=== PATIENT | male | born 1970 | race Two or more races ===

== ENCOUNTER 2017-07-20 11:07 | Inpatient (IN) | payer OTHER ==
[2017-07-20 14:32] VITALS: BMI 33.3
--- NOTE | 2017-07-20 16:16 | HP ---
COWS - Scale Resting Pulse: 1= OR 81-100 Sweatin=Flushed/Facial Moisture Restless Observation: 1= Difficult to Sit Still Pupil Size: 0= Normal to Room Light Bone or Joint Aches: 2= Severe Diffuse Aches Runny Nose/ Eye Tearin= Runny Nose/Eyes GI Upset > 30mins: 2= Nausea/Diarrhea Tremor Observation: 2= Slight Tremor Visible Yawning Observation: 1= 1-2x During Session Anxiety or Irritability: 2=Irritable/Anxious Goose Flesh Skin: 0=Smooth Skin COWS Score: 15 CIWA Score - CIWA Score Nausea/Vomitin Muscle Tremors: 4-Moderate,w/Arms Extend Anxiety: 4-Mod. Anxious/Guarded Agitation: 3 Paroxysmal Sweats: 3 Orientation: 3-Disoriented Date>2 days Tacttile Disturbances: 0-None Auditory Disturbances: 0-None Visual Disturbances: 0-None Headache: 0-None Present CIWA-Ar Total Score: 19 Admission ROS BHS - HPI Chief Complaint: Withdrawal sx. Allergies/Adverse Reactions: Allergies Allergy/AdvReac Type Severity Reaction Status Date / Time pollen extracts Allergy Verified 07/20/17 16:10 History of Present Illness: 47 y/o man with a long hx of Heroin,Alcohol & sedative dependence is admitted for detox. pt. reports one previous detox at [facility] in the . Exam Limitations: No Limitations - Ebola screening Have you traveled outside of the country in the last 21 days: No Have you had contact with anyone from an Ebola affected area: No Have you been sick,other than usual withdrawal symptoms: No Do you have a fever: No - Review of Systems Constitutional: Diaphoresis EENT: reports: Nose Congestion Respiratory: reports: No Symptoms reported Cardiac: reports: No Symptoms Reported GI: reports: Nausea, Abdominal cramping : reports: No Symptoms Reported Musculoskeletal: reports: Back Pain, Joint Pain Integumentary: reports: Sweating Neuro: reports: Seizure (3 yrs ago sedative withdrawal sx.), Tremors Patient History - Patient Medical History Hx Anemia: No Hx Asthma: No Hx Chronic Obstructive Pulmonary Disease (COPD): No Hx Cancer: No Hx Cardiac Disorders: No Hx Congestive Heart Failure: No Hx Hypertension: No Hx Hypercholesterolemia: No Hx Pacemaker: No 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) Hx Dementia: No Hx Diabetes: No Hx Gastrointestinal Disorders: Yes (GERD) Hx Liver Disease: No Hx Genitourinary Disorders: No Hx Sexually Transmitted Disorders: No Hx Renal Disease (ESRD): No Hx Thyroid Disease: No Hx Human Immunodeficiency Virus (HIV): No Hx Hepatitis C: No Hx Depression: Yes (Seroquel,elavil & xanax) Hx Suicide Attempt: No Hx Bipolar Disorder: Yes Hx Schizophrenia: No - Patient Surgical History Past Surgical History: No - PPD History Previous Implant?: Yes Documented Results: Negative w/o proof Implanted On Prior [facility] Admission?: No PPD to be Administered?: Yes - Smoking Cessation Smoking history: Current every day smoker Aproximately how many cigarettes per day: 20 Hx Chewing Tobacco Use: No Initiated information on smoking cessation: Yes 'Breaking Loose' booklet given: 07/20/17 - Substance & Tx. History Hx Alcohol Use: Yes Hx Substance Use: Yes Substance Use Type: Alcohol, Heroin, Tranquilizers Hx Substance Use Treatment: Yes ([facility] many years ago) - Substances Abused Alcohol Route: Oral Frequency: Daily Amount used: Beer >1(6pack) Age of first use: 17 Date of Last Use: 07/20/17 Heroin Route: Inhalation Frequency: Daily Amount used: 8 bags & Methadone 60mg Age of first use: 19 Date of Last Use: 07/20/17 Alprazolam (Xanax) Route: Oral Frequency: Daily Amount used: 3mg Date of Last Use: 07/20/17 Family Disease History - Family Disease History Family History: Denies Admission Physical Exam [facility] - Vital Signs Vital Signs: Vital Signs - 24 hr 07/20/17 14:29 Temperature 95.9 F L Pulse Rate 85 Respiratory 20 Rate Blood Pressure 110/75 - Physical General Appearance: Yes: Alcohol on Breath, Tremorous, Irritable, Sweating, Anxious HEENTM: Yes: Nasal Congestion, Rhinorrhea Respiratory: Yes: Chest Non-Tender, Lungs Clear, Normal Breath Sounds Neck: Yes: Supple Breast: Yes: Breast Exam Deferred Cardiology: Yes: Regular Rhythm, Regular Rate, S1, S2 Abdominal: Yes: Normal Bowel Sounds, Non Tender, Soft Genitourinary: Yes: Within Normal Limits Back: Yes: Within Normal Limits Musculoskeletal: Yes: Joint swelling (left knee) Extremities: Yes: Tremors Neurological: Yes: Fully Oriented, Alert Lymphatic: Yes: Within Normal Limits - Diagnostic (1) Opioid dependence with withdrawal Current Visit: Yes Status: Acute (2) Sedative, hypnotic or anxiolytic dependence with withdrawal, uncomplicated Current Visit: Yes Status: Acute (3) Alcohol dependence with uncomplicated withdrawal Current Visit: Yes Status: Acute Cleared for Admission [facility] - Detox or Rehab [facility] Level of Care: Medically Managed Detox Regimen/Protocol: Methadone/Librium [facility] Breath Alcohol Content Breath Alcohol Content: 0.019 Urine Drug Screen - Results Urine Drug Screen Results: THC-Marijuana, OPI-Opiates, BZO-Benzodiazepines, MTD- Methadone, TCA-Tricyclic Antidepress
[2017-07-20] MEDS ORDERED: MAGNESIUM CITRATE 300 ML BOTTLE PO PRN (16:31)
[2017-07-20] MEDS ORDERED: ACETAMINOPHEN 325 MG TABLET (FP) PO PRN (16:31)
[2017-07-20] MEDS ORDERED: MAGNESIUM HYDROX 2400MG/30ML ORAL SUSPENSION 30 ML CUP PO PRN (16:31)
[2017-07-20] MEDS ORDERED: IBUPROFEN 400 MG TABLET (FP) PO PRN (16:31)
[2017-07-20] MEDS ORDERED: guaiFENesin/D-METHORPHAN HB 10 ML UNIT-DOSE CUPS PO PRN (16:31)
[2017-07-20] MEDS ORDERED: MENTHOL/PHENOL 1 EACH UD MM PRN (16:31)
[2017-07-20] MEDS ORDERED: chlordiazePOXIDE HCL 25 MG CAPSULE PO PRN (16:31)
[2017-07-20] MEDS ORDERED: NICOTINE POLACRILEX 2 MG GUM BC PRN (16:31)
[2017-07-20] MEDS ORDERED: chlordiazePOXIDE HCL 25 MG CAPSULE PO ONE (16:31)
[2017-07-20] MEDS ORDERED: P-EPHED 60MG/TRIPROLIDI 2.5MG TABLET PO PRN (16:31)
[2017-07-20] MEDS ORDERED: MAG HYDROX/AL HYDROX/SIMETH 30 ML UNIT-DOSE CUP PO PRN (16:31)
[2017-07-20] MEDS ORDERED: METHADONE HCL 10 MG TABLET (FOR DETOX USE ONLY) PO ONE ×2 (16:31→23:00)
[2017-07-20] MEDS ORDERED: LOPERAMIDE HCL 2 MG CAPSULE PO PRN (16:31)
[2017-07-20] MEDS ORDERED: chlordiazePOXIDE HCL 25 MG CAPSULE PO SCH (17:00)
[2017-07-20] MEDS ORDERED: diazePAM 5 MG TABLET PO ONE (18:59)
[2017-07-20] MEDS ORDERED: METHADONE HCL 10 MG TABLET (FOR DETOX USE ONLY) ONE (19:16)
[2017-07-20] MEDS: NICOTINE 21 MG/24 HOURS TOPICAL PATCH TD SCH (19:28)
[2017-07-20 20:16] LABS: URINE APPEARANCE TURBID; URINE BILIRUBIN NEGATIVE (NEGATIVE); URINE BLOOD NEGATIVE (NEGATIVE); URINE COLOR YELLOW; URINE GLUCOSE (UA) NEGATIVE (NEGATIVE); URINE KETONE NEGATIVE (NEGATIVE); URINE NITRITE NEGATIVE (NEGATIVE); URINE PROTEIN NEGATIVE (NEGATIVE); URINE UROBILINOGEN NEGATIVE mg/dL (0.2-1.0)
[2017-07-20 22:24] LABS: URINE LEUK ESTERASE Negative (NEGATIVE)
[2017-07-20] MEDS: diphenhydrAMINE HCL 50 MG CAPSULE PO PRN (22:55)
[2017-07-20] MEDS: diazePAM 5 MG TABLET PO SCH (22:55)
[2017-07-20] MEDS: THIAMINE HCL 100 MG TABLET (FP) PO SCH (22:55)
[2017-07-21] MEDS: diazePAM 5 MG TABLET PO SCH ×3 (06:08→22:39)
[2017-07-21] MEDS ORDERED: METHADONE HCL 10 MG TABLET (FOR DETOX USE ONLY) PO SCH (10:00)
[2017-07-21] MEDS: PRENATAL VITAMINS W/ FOLIC ACID TABLET (FP) PO SCH (10:21)
[2017-07-21] MEDS: NICOTINE 21 MG/24 HOURS TOPICAL PATCH TD SCH (10:21)
[2017-07-21] MEDS: diazePAM 5 MG TABLET PO PRN (10:21)
[2017-07-21 10:28] LABS: MCH 29.8 pg (25.7-33.7); MCHC 33.3 g/dl (32.0-35.9); MEAN CELL VOLUME 89.5 fl (80-96); MEAN PLT VOLUME 9.2 fl (7.5-11.1); PLATELET COUNT 211 K/MM3 (134-434); RDW 13.8 % (11.9-15.9); WHITE BLOOD COUNT 6.3 K/mm3 (4.0-10.0)
[2017-07-21 10:33] LABS: ALBUMIN 3.5 g/dl (3.4-5.0); ALK PHOS 161 U/L (45-117); ANION GAP 9 (8-16); BILIRUBIN,TOTAL 0.8 mg/dL (0.2-1.0); CALCIUM 8.8 mg/dL (8.5-10.1); CO2 26 mmol/L (21-32); GLUCOSE,RANDOM 113 mg/dL (74-106); SGOT/AST 23 U/L (15-37); SGPT/ALT 33 U/L (12-78); TOT PROT 7.4 g/dl (6.4-8.2)
--- NOTE | 2017-07-21 10:56 | CONSULT ---
[facility] Psychiatric Consult - Data Date of interview: 07/21/17 Admission source: Self-referred Identifying data: Mr Zuleta is a 47 years old single , father of a 25 years old son, unemployed on SSI, homeless Substance Abuse History: Reports history of alcohol, heroin, methadone and xanax use. Refer to medical & counselor's notes for more detail information Medical History: Significant for GERD and Sedative-related seizure. Claims that he was in a coma for 4 days after having a seizure due to running out of Xanax. Smokes cigarettes 1ppd Psychiatric History: Denies previous psychiatric hospitalization or suicidal attempt. However, reports seing a psychiatrist at a clinic in the [place] and he is prescribed Elavil 25 mg for insomnia and Xanax 1 mg po TID for anxiety. At present, reports feeling very anxious and sleeping poorly Physical/Sexual Abuse/Trauma History: Denies history of verbal, physical or sexual abuse as well as DV relationship Additional Comment: Reports history of 5 previous arrests including 2 felony convitions. No parole/probation currently Mental Status Exam - Mental Status Exam Alert and Oriented to: Time, Place, Person Cognitive Function: Fair Patient Appearance: Well Groomed Mood: Anxious Affect: Appropriate Patient Behavior: Cooperative Speech Pattern: Clear Voice Loudness: Normal Thought Process: Intact, Goal Oriented Thought Disorder: Not Present Hallucinations: Denies Suicidal Ideation: Denies Homicidal Ideation: Denies Insight/Judgement: Poor Appetite: Fair Muscle strength/Tone: Normal Gait/Station: Normal Psychiatric Findings - Problem List ([place] 1, 2,3) (1) Substance-induced anxiety disorder Current Visit: Yes Status: Acute (2) Substance-induced sleep disorder Current Visit: Yes Status: Acute (3) Alcohol dependence with uncomplicated withdrawal Current Visit: Yes Status: Acute (4) Opioid dependence with withdrawal Current Visit: Yes Status: Acute (5) Sedative, hypnotic or anxiolytic dependence with withdrawal, uncomplicated Current Visit: Yes Status: Acute (6) Nicotine dependence Current Visit: Yes Status: Acute - Initial Treatment Plan Initial Treatment Plan: 1) Continue Elavil 25 mg po HS for insomnia. 2) continue inpatient detoxification
--- NOTE | 2017-07-21 11:56 | PN ---
[facility] CIWA - CIWA Score Nausea/Vomitin-No Nausea/No Vomiting Muscle Tremors: 4-Moderate,w/Arms Extend Anxiety: 3 Agitation: 3 Paroxysmal Sweats: 3 Orientation: 0-Oriented Tacttile Disturbances: 0-None Auditory Disturbances: 0-None Visual Disturbances: 0-None Headache: 0-None Present CIWA-Ar Total Score: 13 BHS COWS - Scale Resting Pulse: 1= SC 81-100 Sweatin=Flushed/Facial Moisture Restless Observation: 1= Difficult to Sit Still Pupil Size: 0= Normal to Room Light Bone or Joint Aches: 1= Mild Discomfort Runny Nose/ Eye Tearin= Nasal Congestion GI Upset > 30mins: 2= Nausea/Diarrhea Tremor Observation of Outstretched Hands: 2= Slight Tremor Visible Yawning Observation: 1= 1-2x During Session Anxiety or Irritability: 2=Irritable/Anxious Goose Flesh Skin: 0=Smooth Skin COWS Score: 13 S Progress Note (SOAP) Subjective: Anxiety,tremors,sweating,interrupted sleep,restless Objective: 07/21/17 11:57 Vital Signs - 8 hr 07/21/17 05:00 Temperature 97.3 F L Pulse Rate 90 Respiratory 18 Rate Blood Pressure 117/87 Laboratory Last Values WBC 6.3 K/mm3 (4.0-10.0) 07/21/17 07:40 RBC 4.71 M/mm3 (4.00-5.60) 07/21/17 07:40 Hgb 14.1 GM/dL (11.7-16.9) 07/21/17 07:40 Hct 42.2 % (35.4-49) 07/21/17 07:40 MCV 89.5 fl (80-96) 07/21/17 07:40 MCH 29.8 pg (25.7-33.7) 07/21/17 07:40 MCHC 33.3 g/dl (32.0-35.9) 07/21/17 07:40 RDW 13.8 % (11.9-15.9) 07/21/17 07:40 Plt Count 211 K/MM3 (134-434) 07/21/17 07:40 MPV 9.2 fl (7.5-11.1) 07/21/17 07:40 Sodium 138 mmol/L (136-145) 07/21/17 07:40 Potassium 3.9 mmol/L (3.5-5.1) 07/21/17 07:40 Chloride 103 mmol/L (98-107) 07/21/17 07:40 Carbon Dioxide 26 mmol/L (21-32) 07/21/17 07:40 Anion Gap 9 (8-16) 07/21/17 07:40 BUN 12 mg/dL (7-18) 07/21/17 07:40 Creatinine 1.0 mg/dL (0.7-1.3) 07/21/17 07:40 Creat Clearance w eGFR > 60 (>60) 07/21/17 07:40 Random Glucose 113 mg/dL (74-106) H 07/21/17 07:40 Calcium 8.8 mg/dL (8.5-10.1) 07/21/17 07:40 Total Bilirubin 0.8 mg/dL (0.2-1.0) 07/21/17 07:40 AST 23 U/L (15-37) 07/21/17 07:40 ALT 33 U/L (12-78) 07/21/17 07:40 Alkaline Phosphatase 161 U/L (45-117) H 07/21/17 07:40 Total Protein 7.4 g/dl (6.4-8.2) 07/21/17 07:40 Albumin 3.5 g/dl (3.4-5.0) 07/21/17 07:40 Urine Color Yellow 07/20/17 19:00 Urine Appearance Turbid 07/20/17 19:00 Urine pH 5.0 (5.0-8.0) 07/20/17 19:00 Ur Specific [place] >= 1.030 (1.005-1.025) H 07/20/17 19:00 Urine Protein Negative (NEGATIVE) 07/20/17 19:00 Urine Glucose (UA) Negative (NEGATIVE) 07/20/17 19:00 Urine Ketones Negative (NEGATIVE) 07/20/17 19:00 Urine Blood Negative (NEGATIVE) 07/20/17 19:00 Urine Nitrite Negative (NEGATIVE) 07/20/17 19:00 Urine Bilirubin Negative (NEGATIVE) 07/20/17 19:00 Urine Urobilinogen Negative mg/dL (0.2-1.0) 07/20/17 19:00 Ur Leukocyte Esterase Negative (NEGATIVE) 07/20/17 19:00 RPR Titer Nonreactive (NONREACTIVE) 07/21/17 07:40 labs noted Assessment: 07/21/17 12:08 Withdrawal sx. Plan: Continue detox
--- NOTE | 2017-07-21 16:29 | EKG ---
Test Reason : Blood Pressure : / mmHG Vent. Rate : 071 BPM Atrial Rate : 071 BPM P-R Int : 144 ms QRS Dur : 110 ms QT Int : 420 ms P-R-T Axes : 019 043 048 degrees QTc Int : 456 ms NORMAL SINUS RHYTHM RSR' OR QR PATTERN IN V1 SUGGESTS RIGHT VENTRICULAR CONDUCTION DELAY NO PREVIOUS ECGS AVAILABLE CORRELATE CLINICALLY AND REPEAT INDICATED Confirmed by ALCIDES AVLES MD ([id number]) on 07/21/2017 4:29:21 PM Referred By: Confirmed By:ALCIDES ALVES MD
[2017-07-21] MEDS ORDERED: chlordiazePOXIDE HCL 25 MG CAPSULE PO SCH (17:00)
[2017-07-21] MEDS: THIAMINE HCL 100 MG TABLET (FP) PO SCH (22:39)
[2017-07-21] MEDS: AMITRIPTYLINE HCL 25 MG TABLET (FP) PO SCH (22:40)
[2017-07-22] MEDS: diazePAM 5 MG TABLET PO PRN ×2 (05:22→20:58)
[2017-07-22] MEDS: NICOTINE 21 MG/24 HOURS TOPICAL PATCH TD SCH (10:42)
[2017-07-22] MEDS: METHADONE HCL 5 MG TABLET (FOR DETOX USE ONLY) PO SCH (10:42)
[2017-07-22] MEDS: diazePAM 5 MG TABLET PO SCH ×2 (10:42→22:18)
[2017-07-22] MEDS: PRENATAL VITAMINS W/ FOLIC ACID TABLET (FP) PO SCH (10:42)
--- NOTE | 2017-07-22 12:32 | PN ---
[facility] CIWA - CIWA Score Nausea/Vomitin-No Nausea/No Vomiting Muscle Tremors: 4-Moderate,w/Arms Extend Anxiety: 4-Mod. Anxious/Guarded Agitation: 4-Moderately Restless Paroxysmal Sweats: 1-Minimal Palms Moist Orientation: 0-Oriented Tacttile Disturbances: 3-Moderate Itch/Numb/Burn Auditory Disturbances: 0-None Visual Disturbances: 0-None Headache: 0-None Present CIWA-Ar Total Score: 16 S COWS - Scale Resting Pulse: 0= NC 80 or Below Sweatin= Chills/Flushing Restless Observation: 3= Extraneous Movement Pupil Size: 0= Normal to Room Light Bone or Joint Aches: 4=Acute Joint/Muscle Pain Runny Nose/ Eye Tearin= Nasal Congestion GI Upset > 30mins: 1= Stomach Cramp Tremor Observation of Outstretched Hands: 1= Tremor [place], Not Seen Yawning Observation: 1= 1-2x During Session Anxiety or Irritability: 1=Feels Anxious/Irritable Goose Flesh Skin: 0=Smooth Skin COWS Score: 13 S Progress Note (SOAP) Subjective: SLIGHT ANXIETY, SWEATS,TREMORS. FATIGUE. Objective: 07/22/17 12:32 Vital Signs Temperature 98.4 F 07/22/17 10:57 Pulse Rate 55 L 07/22/17 10:57 Respiratory Rate 20 07/22/17 10:57 Blood Pressure 134/86 07/22/17 10:57 O2 Sat by Pulse Oximetry (%) Laboratory Last Values WBC 6.3 K/mm3 (4.0-10.0) 07/21/17 07:40 RBC 4.71 M/mm3 (4.00-5.60) 07/21/17 07:40 Hgb 14.1 GM/dL (11.7-16.9) 07/21/17 07:40 Hct 42.2 % (35.4-49) 07/21/17 07:40 MCV 89.5 fl (80-96) 07/21/17 07:40 MCH 29.8 pg (25.7-33.7) 07/21/17 07:40 MCHC 33.3 g/dl (32.0-35.9) 07/21/17 07:40 RDW 13.8 % (11.9-15.9) 07/21/17 07:40 Plt Count 211 K/MM3 (134-434) 07/21/17 07:40 MPV 9.2 fl (7.5-11.1) 07/21/17 07:40 Sodium 138 mmol/L (136-145) 07/21/17 07:40 Potassium 3.9 mmol/L (3.5-5.1) 07/21/17 07:40 Chloride 103 mmol/L (98-107) 07/21/17 07:40 Carbon Dioxide 26 mmol/L (21-32) 07/21/17 07:40 Anion Gap 9 (8-16) 07/21/17 07:40 BUN 12 mg/dL (7-18) 07/21/17 07:40 Creatinine 1.0 mg/dL (0.7-1.3) 07/21/17 07:40 Creat Clearance w eGFR > 60 (>60) 07/21/17 07:40 Random Glucose 113 mg/dL (74-106) H 07/21/17 07:40 Calcium 8.8 mg/dL (8.5-10.1) 07/21/17 07:40 Total Bilirubin 0.8 mg/dL (0.2-1.0) 07/21/17 07:40 AST 23 U/L (15-37) 07/21/17 07:40 ALT 33 U/L (12-78) 07/21/17 07:40 Alkaline Phosphatase 161 U/L (45-117) H 07/21/17 07:40 Total Protein 7.4 g/dl (6.4-8.2) 07/21/17 07:40 Albumin 3.5 g/dl (3.4-5.0) 07/21/17 07:40 Urine Color Yellow 07/20/17 19:00 Urine Appearance Turbid 07/20/17 19:00 Urine pH 5.0 (5.0-8.0) 07/20/17 19:00 Ur Specific [place] >= 1.030 (1.005-1.025) H 07/20/17 19:00 Urine Protein Negative (NEGATIVE) 07/20/17 19:00 Urine Glucose (UA) Negative (NEGATIVE) 07/20/17 19:00 Urine Ketones Negative (NEGATIVE) 07/20/17 19:00 Urine Blood Negative (NEGATIVE) 07/20/17 19:00 Urine Nitrite Negative (NEGATIVE) 07/20/17 19:00 Urine Bilirubin Negative (NEGATIVE) 07/20/17 19:00 Urine Urobilinogen Negative mg/dL (0.2-1.0) 07/20/17 19:00 Ur Leukocyte Esterase Negative (NEGATIVE) 07/20/17 19:00 RPR Titer Nonreactive (NONREACTIVE) 07/21/17 07:40 Assessment: 07/22/17 12:32 WITHDRAWAL SX Plan: CONTINUE DETOX
[2017-07-22] MEDS ORDERED: chlordiazePOXIDE 5 MG CAPSULE PO SCH (17:00)
[2017-07-22] MEDS: AMITRIPTYLINE HCL 25 MG TABLET (FP) PO SCH (22:17)
[2017-07-22] MEDS: TOLNAFTATE 1% CREAM 15 GM TUBE TP SCH (22:17)
[2017-07-22] MEDS: diphenhydrAMINE HCL 50 MG CAPSULE PO PRN ×2 (22:18→23:31)
[2017-07-22] MEDS: THIAMINE HCL 100 MG TABLET (FP) PO SCH (22:18)
[2017-07-23] MEDS: diazePAM 5 MG TABLET PO PRN ×2 (05:55→17:14)
[2017-07-23] MEDS: diazePAM 5 MG TABLET PO SCH ×2 (10:30→22:18)
[2017-07-23] MEDS: METHADONE HCL 5 MG TABLET (FOR DETOX USE ONLY) PO SCH (10:30)
[2017-07-23] MEDS: PRENATAL VITAMINS W/ FOLIC ACID TABLET (FP) PO SCH (10:30)
[2017-07-23] MEDS: NICOTINE 21 MG/24 HOURS TOPICAL PATCH TD SCH (10:31)
[2017-07-23] MEDS: TOLNAFTATE 1% CREAM 15 GM TUBE TP SCH ×2 (10:31→22:18)
--- NOTE | 2017-07-23 13:20 | PN ---
BHS Progress Note (SOAP) Subjective: Interrupted sleep, Diarrhea, Nausea, Anxious, Body Aches, Sweating. Objective: PT. A & O X 3, OBSERVED AMBULATING ON UNIT. NO ACUTE DISTRESS. 07/23/17 13:19 Vital Signs Temperature 97.1 F L 07/23/17 10:13 Pulse Rate 100 H 07/23/17 10:13 Respiratory Rate 20 07/23/17 10:13 Blood Pressure 126/85 07/23/17 10:13 O2 Sat by Pulse Oximetry (%) Laboratory Tests 07/20/17 07/21/17 07/21/17 19:00 07:40 07:40 WBC 6.3 RBC 4.71 Hgb 14.1 Hct 42.2 MCV 89.5 MCH 29.8 MCHC 33.3 RDW 13.8 Plt Count 211 MPV 9.2 Sodium 138 Potassium 3.9 Chloride 103 Carbon Dioxide 26 Anion Gap 9 BUN 12 Creatinine 1.0 Creat Clearance w eGFR > 60 Random Glucose 113 H Calcium 8.8 Total Bilirubin 0.8 AST 23 ALT 33 Alkaline Phosphatase 161 H Total Protein 7.4 Albumin 3.5 Urine Color Yellow Urine Appearance Turbid Urine pH 5.0 Ur Specific [place] >= 1.030 H Urine Protein Negative Urine Glucose (UA) Negative Urine Ketones Negative Urine Blood Negative Urine Nitrite Negative Urine Bilirubin Negative Urine Urobilinogen Negative Ur Leukocyte Esterase Negative RPR Titer 07/21/17 07:40 WBC RBC Hgb Hct MCV MCH MCHC RDW Plt Count MPV Sodium Potassium Chloride Carbon Dioxide Anion Gap BUN Creatinine Creat Clearance w eGFR Random Glucose Calcium Total Bilirubin AST ALT Alkaline Phosphatase Total Protein Albumin Urine Color Urine Appearance Urine pH Ur Specific [place] Urine Protein Urine Glucose (UA) Urine Ketones Urine Blood Urine Nitrite Urine Bilirubin Urine Urobilinogen Ur Leukocyte Esterase RPR Titer Nonreactive LABS NOTED. Assessment: 07/23/17 13:19 WITHDRAWAL SYMPTOMS. Plan: CONTINUE DETOX. PRN IMMODIUM FOR DIARRHEA. INCREASE DAILY PO FLUID INTAKE.
[2017-07-23] MEDS ORDERED: chlordiazePOXIDE HCL 10 MG CAPSULE PO SCH (17:00)
[2017-07-23] MEDS: THIAMINE HCL 100 MG TABLET (FP) PO SCH (22:17)
[2017-07-23] MEDS: AMITRIPTYLINE HCL 25 MG TABLET (FP) PO SCH (22:18)
[2017-07-23] MEDS: diphenhydrAMINE HCL 50 MG CAPSULE PO PRN (22:19)
[2017-07-23] MEDS: hydrOXYzine PAMOATE 50 MG CAPSULE (FP) PO PRN (23:25)
[2017-07-24] MEDS: hydrOXYzine PAMOATE 50 MG CAPSULE (FP) PO PRN (05:43)
--- NOTE | 2017-07-24 09:33 | PN ---
BHS Progress Note (SOAP) Subjective: Tremors, Anxious, H/A, Sweating, Interrupted sleep, Body Aches. Objective: PT. A & O X 3. NO ACUTE DISTRESS. 07/24/17 09:31 Vital Signs Temperature 96.1 F L 07/24/17 06:49 Pulse Rate 59 L 07/24/17 06:49 Respiratory Rate 18 07/24/17 06:49 Blood Pressure 136/97 07/24/17 06:49 O2 Sat by Pulse Oximetry (%) Laboratory Tests 07/20/17 07/21/17 07/21/17 19:00 07:40 07:40 WBC 6.3 RBC 4.71 Hgb 14.1 Hct 42.2 MCV 89.5 MCH 29.8 MCHC 33.3 RDW 13.8 Plt Count 211 MPV 9.2 Sodium 138 Potassium 3.9 Chloride 103 Carbon Dioxide 26 Anion Gap 9 BUN 12 Creatinine 1.0 Creat Clearance w eGFR > 60 Random Glucose 113 H Calcium 8.8 Total Bilirubin 0.8 AST 23 ALT 33 Alkaline Phosphatase 161 H Total Protein 7.4 Albumin 3.5 Urine Color Yellow Urine Appearance Turbid Urine pH 5.0 Ur Specific [place] >= 1.030 H Urine Protein Negative Urine Glucose (UA) Negative Urine Ketones Negative Urine Blood Negative Urine Nitrite Negative Urine Bilirubin Negative Urine Urobilinogen Negative Ur Leukocyte Esterase Negative RPR Titer 07/21/17 07:40 WBC RBC Hgb Hct MCV MCH MCHC RDW Plt Count MPV Sodium Potassium Chloride Carbon Dioxide Anion Gap BUN Creatinine Creat Clearance w eGFR Random Glucose Calcium Total Bilirubin AST ALT Alkaline Phosphatase Total Protein Albumin Urine Color Urine Appearance Urine pH Ur Specific [place] Urine Protein Urine Glucose (UA) Urine Ketones Urine Blood Urine Nitrite Urine Bilirubin Urine Urobilinogen Ur Leukocyte Esterase RPR Titer Nonreactive LABS NOTED. Assessment: 07/24/17 09:32 WITHDRAWAL SYMPTOMS. Plan: CONTINUE DETOX.
[2017-07-24] MEDS: PRENATAL VITAMINS W/ FOLIC ACID TABLET (FP) PO SCH (09:35)
[2017-07-24] MEDS: TOLNAFTATE 1% CREAM 15 GM TUBE TP SCH (09:36)
[2017-07-24] MEDS: NICOTINE 21 MG/24 HOURS TOPICAL PATCH TD SCH (09:36)
[2017-07-24] MEDS ORDERED: METHADONE HCL 10 MG TABLET (FOR DETOX USE ONLY) PO SCH (10:00)
[2017-07-24] MEDS ORDERED: diazePAM 5 MG TABLET PO SCH (10:00)
[2017-07-24 10:10] VITALS: BP 126/94; PULSE 64; TEMP 96.6
--- NOTE | 2017-07-24 11:30 | DS ---
[facility] Detox Discharge Summary Admission Date: 07/20/17 Discharge Date: 07/24/17 - History Present History: Alcohol Dependence, Opioid Dependence, Sedative Dependence Additional Comments: PATIENT GOING TO [facility] FOR AFTERCARE. PATIENT WAS DISCHARGED FROM DETOX UNIT TO BE TAKEN TO REHAB UNIT IN STABLE MEDICAL CONDITION. Pertinent Past History: History of seizures (Drug-Related), Depression, bipolar disorder, Nicotine Dependence. - Physical Exam Results Vital Signs: Vital Signs Temperature 96.6 F L 07/24/17 10:09 Pulse Rate 64 07/24/17 10:09 Respiratory Rate 18 07/24/17 10:09 Blood Pressure 126/94 07/24/17 10:09 O2 Sat by Pulse Oximetry (%) Pertinent Admission Physical Exam Findings: WITHDRAWAL SYMPTOM. Laboratory Tests 07/20/17 07/21/17 07/21/17 19:00 07:40 07:40 WBC 6.3 RBC 4.71 Hgb 14.1 Hct 42.2 MCV 89.5 MCH 29.8 MCHC 33.3 RDW 13.8 Plt Count 211 MPV 9.2 Sodium 138 Potassium 3.9 Chloride 103 Carbon Dioxide 26 Anion Gap 9 BUN 12 Creatinine 1.0 Creat Clearance w eGFR > 60 Random Glucose 113 H Calcium 8.8 Total Bilirubin 0.8 AST 23 ALT 33 Alkaline Phosphatase 161 H Total Protein 7.4 Albumin 3.5 Urine Color Yellow Urine Appearance Turbid Urine pH 5.0 Ur Specific [place] >= 1.030 H Urine Protein Negative Urine Glucose (UA) Negative Urine Ketones Negative Urine Blood Negative Urine Nitrite Negative Urine Bilirubin Negative Urine Urobilinogen Negative Ur Leukocyte Esterase Negative RPR Titer 07/21/17 07:40 WBC RBC Hgb Hct MCV MCH MCHC RDW Plt Count MPV Sodium Potassium Chloride Carbon Dioxide Anion Gap BUN Creatinine Creat Clearance w eGFR Random Glucose Calcium Total Bilirubin AST ALT Alkaline Phosphatase Total Protein Albumin Urine Color Urine Appearance Urine pH Ur Specific [place] Urine Protein Urine Glucose (UA) Urine Ketones Urine Blood Urine Nitrite Urine Bilirubin Urine Urobilinogen Ur Leukocyte Esterase RPR Titer Nonreactive LABS NOTED. - Treatment Hospital Course: Detox Protocol Followed, Detoxed Safely, Responded well, Discharged Condition Good, Rehab Referral Accepted Patient has Accepted a Rehab Referral to: [facility]. - Diagnosis (1) Alcohol dependence with uncomplicated withdrawal Current Visit: Yes Status: Acute (2) Nicotine dependence Current Visit: Yes Status: Chronic Qualifiers: Nicotine product type: cigarettes Substance use status: uncomplicated Qualified Code(s): F17.210 - Nicotine dependence, cigarettes, uncomplicated; F17.210 - Nicotine dependence, cigarettes, uncomplicated (3) Opioid dependence with withdrawal Current Visit: Yes Status: Acute (4) Sedative, hypnotic or anxiolytic dependence with withdrawal, uncomplicated Current Visit: Yes Status: Acute (5) Substance-induced anxiety disorder Current Visit: Yes Status: Acute (6) Substance-induced sleep disorder Current Visit: Yes Status: Acute - AMA Did Patient Leave Against Medical Advice: No
[2017-07-25] MEDS ORDERED: METHADONE HCL 5 MG TABLET (FOR DETOX USE ONLY) PO SCH (06:00)
== END 2017-07-24 12:10 | disposition other institution (70) | DRG 773 ==
LOC: YASAS 11:07 → Y3N 16:34
PROVIDERS: ADMIT Internal Medicine; ATTEND Internal Medicine
PROC: HZ2ZZZZ Detoxification Services for Substance Abuse Treatment (ICD-10-PCS; principal; 2017-07-20)
DX: F11.23 Opioid dependence with withdrawal (principal); F13.230 Sedative, hypnotic or anxiolytic dependence with withdrawal, uncomplicated; F10.230 Alcohol dependence with withdrawal, uncomplicated; F17.210 Nicotine dependence, cigarettes, uncomplicated; F19.280 Other psychoactive substance dependence with psychoactive substance-induced anxiety disorder; F19.282 Other psychoactive substance dependence with psychoactive substance-induced sleep disorder; K21.9 Gastro-esophageal reflux disease without esophagitis; J30.2 Other seasonal allergic rhinitis; Z86.69 Personal history of other diseases of the nervous system and sense organs; Z59.0 Homelessness
CPT/HCPCS: 36415; 80053; 81003; 85027; 86593; 93005; 93010

== ENCOUNTER 2017-07-24 12:24 | Inpatient (IN) | payer OTHER ==
--- NOTE | 2017-07-24 11:24 | HP ---
[facility] Rehab Assess/Revision - Admission History Admitted to Rehab from: [facility] Date of Admission to Rehab: 07/24/2017. - Vital signs Vital Signs: NOTED; STABLE. - Findings Detox History & Physical reviewed: Yes Concur with findings: Yes Comments/Additional Findings: PATIENT'S MEDICAL / MEDICATION HISTORY REVIEWED PRIOR TO DISCHARGE FROM DETOX UNIT. PATIENT IN STABLE MEDICAL CONDITION AT TIME OF DISCHARGE FROM DETOX TO BE TAKEN TO REHAB UNIT. Inpatient Rehab Admission - Initial Determination Are CD services needed?: Yes Free of communicable disease: Yes Not in need of hospitalization: Yes - Rehab Admission Criteria Previous failed treatment: Yes Comorbidities: Yes Patient is meeting Inpatient Rehab admission criteria:: Yes
[2017-07-24] MEDS ORDERED: MAGNESIUM HYDROX 2400MG/30ML ORAL SUSPENSION 30 ML CUP PO PRN (14:45)
[2017-07-24] MEDS ORDERED: ACETAMINOPHEN 325 MG TABLET (FP) PO PRN (14:45)
[2017-07-24] MEDS ORDERED: MENTHOL/PHENOL 1 EACH UD MM PRN (14:45)
[2017-07-24] MEDS ORDERED: LOPERAMIDE HCL 2 MG CAPSULE PO PRN (14:45)
[2017-07-24] MEDS ORDERED: IBUPROFEN 400 MG TABLET (FP) PO PRN (14:45)
[2017-07-24] MEDS ORDERED: MAGNESIUM CITRATE 300 ML BOTTLE PO PRN (14:45)
[2017-07-24] MEDS ORDERED: guaiFENesin/D-METHORPHAN HB 10 ML UNIT-DOSE CUPS PO PRN (14:45)
[2017-07-24] MEDS ORDERED: MAG HYDROX/AL HYDROX/SIMETH 30 ML UNIT-DOSE CUP PO PRN (14:45)
--- NOTE | 2017-07-24 14:55 | HP ---
[facility] Rehab Assess/Revision - Admission History Admitted to Rehab from: [facility] Date of Admission to Rehab: 07/24/2017 - Vital signs Vital Signs: Vital Signs Period Temp Pulse Resp BP Sys/Fierro Pulse Ox Last 24 Hr 98.2 F 80 20 110/80 - Findings Detox History & Physical reviewed: Yes (Patient is alert and oriented x 3. Completed detox and transfered to rehab ) Concur with findings: Yes
--- NOTE | 2017-07-24 15:56 | HP ---
[facility] Rehab Assess/Revision - Vital signs Vital Signs: Vital Signs Period Temp Pulse Resp BP Sys/Fierro Pulse Ox Last 24 Hr 98.2 F 80 20 110/80 Inpatient Rehab Admission - Initial Determination Are CD services needed?: Yes Free of communicable disease: Yes Not in need of hospitalization: Yes - Rehab Admission Criteria Comorbidities: Yes Patient is meeting Inpatient Rehab admission criteria:: Yes
[2017-07-24] MEDS: THIAMINE HCL 100 MG TABLET (FP) PO SCH (21:06)
[2017-07-24] MEDS: AMITRIPTYLINE HCL 25 MG TABLET (FP) PO SCH (21:06)
[2017-07-24] MEDS: diphenhydrAMINE HCL 50 MG CAPSULE PO PRN (21:08)
[2017-07-25] MEDS: PRENATAL VITAMINS W/ FOLIC ACID TABLET (FP) PO SCH (09:57)
--- NOTE | 2017-07-25 11:31 | HP ---
Psychiatrist Admission - Data Date of interview: 07/25/17 Admission source: 3N Identifying data: This is the first 5N inpatient rehabilitation admission for this 47 years old single , father of a 25 years old son, unemployed on SSI, homeless. Medical History: GERD and Sedative-related seizure. Claims he was in a coma for 4 days after having a seizure due to running out of Xanax. Smokes cigarettes 1ppd Psychiatric History: Patient reports seing a psychiatrist at a clinic in the [place] and he is on Elavil 25 mg for insomnia and Xanax 1 mg po TID for anxiety. He denies history of psychiatric hospitalizations, seen by while in detox. and continued Elavil At present, reports feeling very anxious , not able to eat, started Gabapentin 100 mg po tid today, patient was educated about properties and indications of Gabapentin. Physical/Sexual Abuse/Trauma History: Denies history of sexual, physical and verbal abuse. Vital Signs: Vital Signs - 24 hr 07/24/17 07/25/17 07/25/17 12:58 00:30 03:29 Temperature 98.2 F Pulse Rate 80 Respiratory 20 16 16 Rate Blood Pressure 110/80 07/25/17 06:34 Temperature 97.7 F Pulse Rate 93 H Respiratory 20 Rate Blood Pressure 125/67 Allergies/Adverse Reactions: Allergies Allergy/AdvReac Type Severity Reaction Status Date / Time pollen extracts Allergy Difficulty Verified 07/24/17 13:01 Breathing Date of last physical exam: 07/19/17 Concur with the findings of this exam: Yes - Substance Abuse/Tx History Hx Substance Use: Yes (methadone ) Substance Use Type: Heroin (7-8 bags a day), Prescribed (xanax 1 mg tid) Hx Substance Use Treatment: Yes Mental Status Exam - Mental Status Exam Alert and Oriented to: Time, Place, Person Cognitive Function: Grossly Intact Patient Appearance: Well Groomed Mood: Nervous, Withdrawn, Anxious Affect: Mood Congruent Patient Behavior: Appropriate, Cooperative Speech Pattern: Clear, Appropriate Voice Loudness: Normal Thought Process: Goal Oriented Thought Disorder: Not Present Hallucinations: Denies Suicidal Ideation: Denies Homicidal Ideation: Denies Insight/Judgement: Fair Sleep: Fair Appetite: Poor, Weight loss (7 lbs over 2 weeks) Muscle strength/Tone: Normal Gait/Station: Normal Psychiatric Findings - Problem List ([place] 1, 2,3) (1) Substance-induced anxiety disorder Current Visit: No Status: Acute (2) Substance-induced sleep disorder Current Visit: No Status: Acute (3) Nicotine dependence Current Visit: No Status: Chronic Qualifiers: Nicotine product type: cigarettes Substance use status: uncomplicated Qualified Code(s): F17.210 - Nicotine dependence, cigarettes, uncomplicated; F17.210 - Nicotine dependence, cigarettes, uncomplicated (4) Opioid dependence Current Visit: Yes Status: Acute (5) Sedative hypnotic or anxiolytic dependence Current Visit: Yes Status: Acute - Initial Treatment Plan Initial Treatment Plan: will continue Elavil, Gabapentin, monitor progress as needed.
[2017-07-25] MEDS: PANTOPRAZOLE 40 MG TABLET (FP) PO SCH (12:13)
[2017-07-25] MEDS: NAPROXEN 500 MG TABLET (FP) PO SCH ×2 (12:13→21:08)
[2017-07-25] MEDS: cloNIDine HCL 0.1 MG TABLET PO SCH ×2 (12:13→21:08)
[2017-07-25] MEDS: GABAPENTIN 100 MG CAPSULE (FP) PO SCH ×2 (14:30→21:08)
[2017-07-25] MEDS: CYCLOBENZAPRINE HCL 5 MG TABLET PO SCH ×2 (14:30→21:08)
[2017-07-25] MEDS: AMITRIPTYLINE HCL 25 MG TABLET (FP) PO SCH (21:08)
[2017-07-25] MEDS: THIAMINE HCL 100 MG TABLET (FP) PO SCH (21:08)
[2017-07-26] MEDS: CYCLOBENZAPRINE HCL 5 MG TABLET PO SCH ×3 (06:11→21:12)
[2017-07-26] MEDS: GABAPENTIN 100 MG CAPSULE (FP) PO SCH ×3 (06:11→21:12)
[2017-07-26] MEDS: PRENATAL VITAMINS W/ FOLIC ACID TABLET (FP) PO SCH (10:01)
[2017-07-26] MEDS: NAPROXEN 500 MG TABLET (FP) PO SCH ×2 (10:01→21:12)
[2017-07-26] MEDS: PANTOPRAZOLE 40 MG TABLET (FP) PO SCH (10:01)
[2017-07-26] MEDS: cloNIDine HCL 0.1 MG TABLET PO SCH ×2 (10:01→21:12)
[2017-07-26] MEDS: AMITRIPTYLINE HCL 25 MG TABLET (FP) PO SCH (21:12)
[2017-07-26] MEDS: THIAMINE HCL 100 MG TABLET (FP) PO SCH (21:12)
[2017-07-26] MEDS: diphenhydrAMINE HCL 50 MG CAPSULE PO PRN (21:13)
[2017-07-27] MEDS: CYCLOBENZAPRINE HCL 5 MG TABLET PO SCH ×3 (06:34→21:03)
[2017-07-27] MEDS: GABAPENTIN 100 MG CAPSULE (FP) PO SCH ×3 (06:34→21:03)
[2017-07-27] MEDS: PRENATAL VITAMINS W/ FOLIC ACID TABLET (FP) PO SCH (10:11)
[2017-07-27] MEDS: cloNIDine HCL 0.1 MG TABLET PO SCH ×2 (10:11→21:03)
[2017-07-27] MEDS: NAPROXEN 500 MG TABLET (FP) PO SCH ×2 (10:11→21:03)
[2017-07-27] MEDS: PANTOPRAZOLE 40 MG TABLET (FP) PO SCH (10:11)
[2017-07-27] MEDS: THIAMINE HCL 100 MG TABLET (FP) PO SCH (21:03)
[2017-07-27] MEDS: AMITRIPTYLINE HCL 25 MG TABLET (FP) PO SCH (21:03)
[2017-07-28] MEDS: CYCLOBENZAPRINE HCL 5 MG TABLET PO SCH ×3 (06:39→21:08)
[2017-07-28] MEDS: GABAPENTIN 100 MG CAPSULE (FP) PO SCH ×3 (06:39→21:08)
[2017-07-28] MEDS: cloNIDine HCL 0.1 MG TABLET PO SCH ×2 (09:59→21:08)
[2017-07-28] MEDS: PANTOPRAZOLE 40 MG TABLET (FP) PO SCH (09:59)
[2017-07-28] MEDS: NAPROXEN 500 MG TABLET (FP) PO SCH ×2 (09:59→21:08)
[2017-07-28] MEDS: PRENATAL VITAMINS W/ FOLIC ACID TABLET (FP) PO SCH (09:59)
[2017-07-28] MEDS: AMITRIPTYLINE HCL 25 MG TABLET (FP) PO SCH (21:08)
[2017-07-28] MEDS: THIAMINE HCL 100 MG TABLET (FP) PO SCH (21:08)
[2017-07-28] MEDS: diphenhydrAMINE HCL 50 MG CAPSULE PO PRN (21:08)
[2017-07-29] MEDS: GABAPENTIN 100 MG CAPSULE (FP) PO SCH ×3 (06:06→21:15)
[2017-07-29] MEDS: CYCLOBENZAPRINE HCL 5 MG TABLET PO SCH ×3 (06:06→21:15)
[2017-07-29] MEDS: PANTOPRAZOLE 40 MG TABLET (FP) PO SCH (09:51)
[2017-07-29] MEDS: NAPROXEN 500 MG TABLET (FP) PO SCH ×2 (09:51→21:15)
[2017-07-29] MEDS: cloNIDine HCL 0.1 MG TABLET PO SCH ×2 (09:51→21:15)
[2017-07-29] MEDS: PRENATAL VITAMINS W/ FOLIC ACID TABLET (FP) PO SCH (09:51)
[2017-07-29] MEDS: TOLNAFTATE 1% CREAM 15 GM TUBE TP SCH ×2 (14:39→21:23)
[2017-07-29] MEDS: AMITRIPTYLINE HCL 25 MG TABLET (FP) PO SCH (21:15)
[2017-07-29] MEDS: THIAMINE HCL 100 MG TABLET (FP) PO SCH (21:15)
[2017-07-30] MEDS: diphenhydrAMINE HCL 50 MG CAPSULE PO PRN (01:58)
[2017-07-30] MEDS: CYCLOBENZAPRINE HCL 5 MG TABLET PO SCH (06:39)
[2017-07-30] MEDS: GABAPENTIN 100 MG CAPSULE (FP) PO SCH ×3 (06:39→21:12)
[2017-07-30] MEDS: TOLNAFTATE 1% CREAM 15 GM TUBE TP SCH ×3 (09:39→21:45)
[2017-07-30] MEDS: PRENATAL VITAMINS W/ FOLIC ACID TABLET (FP) PO SCH (09:39)
[2017-07-30] MEDS: NAPROXEN 500 MG TABLET (FP) PO SCH (09:39)
[2017-07-30] MEDS: PANTOPRAZOLE 40 MG TABLET (FP) PO SCH (09:39)
[2017-07-30] MEDS: cloNIDine HCL 0.1 MG TABLET PO SCH (09:39)
[2017-07-30] MEDS: THIAMINE HCL 100 MG TABLET (FP) PO SCH (21:12)
[2017-07-30] MEDS: AMITRIPTYLINE HCL 25 MG TABLET (FP) PO SCH (21:12)
[2017-07-31] MEDS: P-EPHED 60MG/TRIPROLIDI 2.5MG TABLET PO PRN (01:11)
[2017-07-31] MEDS ORDERED: diphenhydrAMINE HCL 50 MG CAPSULE PO ONE (01:13)
[2017-07-31] MEDS: GABAPENTIN 100 MG CAPSULE (FP) PO SCH ×3 (06:43→21:13)
[2017-07-31] MEDS: PRENATAL VITAMINS W/ FOLIC ACID TABLET (FP) PO SCH (10:05)
[2017-07-31] MEDS: TOLNAFTATE 1% CREAM 15 GM TUBE TP SCH ×2 (10:05→21:13)
[2017-07-31] MEDS: AMITRIPTYLINE HCL 25 MG TABLET (FP) PO SCH (21:13)
[2017-07-31] MEDS: THIAMINE HCL 100 MG TABLET (FP) PO SCH (21:13)
[2017-07-31] MEDS: diphenhydrAMINE HCL 50 MG CAPSULE PO PRN (21:13)
[2017-08-01] MEDS: GABAPENTIN 100 MG CAPSULE (FP) PO SCH ×3 (06:26→21:09)
[2017-08-01] MEDS: TOLNAFTATE 1% CREAM 15 GM TUBE TP SCH ×2 (09:48→21:08)
[2017-08-01] MEDS: PRENATAL VITAMINS W/ FOLIC ACID TABLET (FP) PO SCH (09:48)
[2017-08-01] MEDS: diphenhydrAMINE HCL 50 MG CAPSULE PO PRN (21:08)
[2017-08-01] MEDS: AMITRIPTYLINE HCL 25 MG TABLET (FP) PO SCH (21:09)
[2017-08-01] MEDS: THIAMINE HCL 100 MG TABLET (FP) PO SCH (21:09)
[2017-08-02] MEDS: diphenhydrAMINE HCL 50 MG CAPSULE PO PRN ×2 (00:37→21:16)
[2017-08-02] MEDS: GABAPENTIN 100 MG CAPSULE (FP) PO SCH ×3 (07:28→21:16)
[2017-08-02] MEDS: PRENATAL VITAMINS W/ FOLIC ACID TABLET (FP) PO SCH (11:02)
[2017-08-02] MEDS: TOLNAFTATE 1% CREAM 15 GM TUBE TP SCH ×2 (11:02→21:17)
[2017-08-02] MEDS: AMITRIPTYLINE HCL 25 MG TABLET (FP) PO SCH (21:16)
[2017-08-02] MEDS: THIAMINE HCL 100 MG TABLET (FP) PO SCH (21:17)
[2017-08-03] MEDS: GABAPENTIN 100 MG CAPSULE (FP) PO SCH ×3 (06:58→21:14)
[2017-08-03] MEDS: TOLNAFTATE 1% CREAM 15 GM TUBE TP SCH ×2 (09:46→21:16)
[2017-08-03] MEDS: PRENATAL VITAMINS W/ FOLIC ACID TABLET (FP) PO SCH (09:46)
[2017-08-03] MEDS: diphenhydrAMINE HCL 50 MG CAPSULE PO PRN (21:13)
[2017-08-03] MEDS: THIAMINE HCL 100 MG TABLET (FP) PO SCH (21:14)
[2017-08-03] MEDS: AMITRIPTYLINE HCL 25 MG TABLET (FP) PO SCH (21:14)
[2017-08-04] MEDS: GABAPENTIN 100 MG CAPSULE (FP) PO SCH ×2 (05:51→14:16)
[2017-08-04] MEDS: P-EPHED 60MG/TRIPROLIDI 2.5MG TABLET PO PRN (05:51)
[2017-08-04] MEDS: PRENATAL VITAMINS W/ FOLIC ACID TABLET (FP) PO SCH (11:14)
[2017-08-04] MEDS: TOLNAFTATE 1% CREAM 15 GM TUBE TP SCH (11:15)
[2017-08-04 19:59] VITALS: BP 126/87; PULSE 104; TEMP 98.1
== END 2017-08-04 20:15 | disposition left against medical advice (07) | DRG 770 ==
LOC: YASAS 12:24 → Y5N 12:25
PROVIDERS: ADMIT Psychiatry & Neurology Psychiatry; ATTEND Psychiatry & Neurology Psychiatry
PROC: HZ42ZZZ Group Counseling for Substance Abuse Treatment, Cognitive-Behavioral (ICD-10-PCS; principal; 2017-07-24)
DX: F11.20 Opioid dependence, uncomplicated (principal); F13.230 Sedative, hypnotic or anxiolytic dependence with withdrawal, uncomplicated; F17.210 Nicotine dependence, cigarettes, uncomplicated; F19.282 Other psychoactive substance dependence with psychoactive substance-induced sleep disorder; F19.280 Other psychoactive substance dependence with psychoactive substance-induced anxiety disorder; Z86.69 Personal history of other diseases of the nervous system and sense organs; Z59.0 Homelessness